=== PATIENT | female | born 1955 ===

== ENCOUNTER 2025-05-24 08:07 | Day surgery (SDC) | payer MEDICARE, OTHER ==
[~2025-05-24 08:07] MED LIST: Sodium Chloride 0.9% 10 ML Syringe FLUSH PRN; Sodium Chloride 0.9% 10 ML Syringe FLUSH SCH
[2025-05-24] MEDS: Lactated Ringers 1,000 ML IV SCH (09:00)
[2025-05-24] MEDS ORDERED: Propofol 200 MG/20 ML SDV ONE (09:03)
== END 2025-05-24 10:40 | disposition home or self-care (01) ==
LOC: JD.SDS 08:07
PROVIDERS: ATTEND Surgery
DX: Z12.11 Encounter for screening for malignant neoplasm of colon (principal); K64.0 First degree hemorrhoids; K64.4 Residual hemorrhoidal skin tags; K57.30 Diverticulosis of large intestine without perforation or abscess without bleeding; E78.00 Pure hypercholesterolemia, unspecified; I10 Essential (primary) hypertension; F17.210 Nicotine dependence, cigarettes, uncomplicated; Z88.8 Allergy status to other drugs, medicaments and biological substances; Z79.82 Long term (current) use of aspirin; Z79.899 Other long term (current) drug therapy
CPT/HCPCS: G0121; J2704; J7120; 00812